=== PATIENT | male | born 1985 | race Two or more races ===

== ENCOUNTER 2023-06-22 10:20 | Outpatient (CLI) | payer BC, SELFPAY | END 2023-06-22 23:59 | disposition home or self-care (01) | LOC: LAB.DROPOF 06-23 09:55 | PROVIDERS: PCP Nurse Practitioner; Visit Provider Nurse Practitioner | DX: N50.811 Right testicular pain (principal); N50.812 Left testicular pain | CPT/HCPCS: 87086 ==